=== PATIENT | female | born 1950 | race Native Hawaiian/Other Pacific Islander ===

== ENCOUNTER 2017-02-09 11:06 | Outpatient (CLI) | payer OTHER ==
[~2017-02-09 11:06] MED LIST: AZO PO; B-125000 MC1 SL; BENADRYL25 M1 OR; BIOTIN1000 MCG PO; BISO5TAB2 PO; CETI10TA PO; DICY20TA34 PO; DONNATA1 PO; DULO30CA OR; EVISTA60 MG PO; EZET10TA13 OR; GENTEAL0.3 % OP; HYDR25TA60 PO; LEVAQUIN500 MG OR; LEVO0.0529 PO; LISI20TA11 PO; LOTE0.5S OPTH; MELATONIN3 MG OR; METHO2.5 PO; MULTIVITAMI1 OR; MUPIROCIN2 % EX; PANT40TA PO; PRILOSEC OTC20 MG PO; PROBIOTI1 OR; RESTASIS0.05 % OP; TAMS0.4C PO; TOPAMAX100 MG OR; VESICARE10 MG OR
== END 2017-02-09 12:06 | disposition home or self-care (01) ==
LOC: RAD 11:06
DX: M25.552 Pain in left hip (principal); M51.86 Other intervertebral disc disorders, lumbar region

== ENCOUNTER 2017-04-26 11:14 | Outpatient (CLI) | payer OTHER ==
[2017-04-26 11:43] LABS: PLATELET COUNT 219 K/uL (152-353)
[2017-04-26 12:10] LABS: SODIUM 136 mmol/L (136-145)
== END 2017-04-26 19:17 | disposition home or self-care (01) ==
LOC: LABW 11:14
PROVIDERS: Internal Medicine
DX: I10 Essential (primary) hypertension (principal); M79.672 Pain in left foot
CPT/HCPCS: 36415; 80053; 80061; 81000; 84439; 84443; 85027

== ENCOUNTER 2017-06-06 12:41 | Outpatient (CLI) | payer OTHER | END 2017-06-06 13:45 | disposition home or self-care (01) | LOC: LABW 12:41 | DX: R30.0 Dysuria (principal) | CPT/HCPCS: 81000 ==

== ENCOUNTER 2017-11-07 12:41 | Outpatient (CLI) | payer OTHER | END 2017-11-07 13:45 | disposition home or self-care (01) | LOC: LABW 12:41 | DX: J30.1 Allergic rhinitis due to pollen (principal); L50.8 Other urticaria | CPT/HCPCS: 36415; 85651; 86003; 86039; 86430 ==

== ENCOUNTER 2018-04-01 11:05 | Outpatient (CLI) | payer OTHER ==
[2018-04-01 11:26] LABS: PLATELET COUNT 231 K/uL (152-353)
[2018-04-01 11:53] LABS: POTASSIUM 3.9 mmol/L (3.6-5.2)
== END 2018-04-01 22:27 | disposition home or self-care (01) ==
LOC: LABW 11:05
PROVIDERS: Physician Assistant
DX: E78.4 Other hyperlipidemia (principal); I10 Essential (primary) hypertension; M32.8 Other forms of systemic lupus erythematosus; Z79.899 Other long term (current) drug therapy; E55.9 Vitamin D deficiency, unspecified; Z51.81 Encounter for therapeutic drug level monitoring; D64.9 Anemia, unspecified
CPT/HCPCS: 36415; 80053; 80061; 82306; 83036; 83540; 83735; 84439; 84443; 85027; 86430

== ENCOUNTER 2018-06-28 08:51 | Outpatient (CLI) | payer OTHER | END 2018-06-28 19:16 | disposition home or self-care (01) | LOC: LABW 08:51 | DX: K64.0 First degree hemorrhoids (principal) | CPT/HCPCS: 82272 ==

== ENCOUNTER 2018-10-30 14:14 | Outpatient (CLI) | payer OTHER ==
[2018-10-30 14:34] LABS: PLATELET COUNT 224 K/uL (152-353)
[2018-10-30 15:05] LABS: POTASSIUM 3.7 mmol/L (3.6-5.2)
== END 2018-10-30 21:16 | disposition home or self-care (01) ==
LOC: LABW 14:14
PROVIDERS: Internal Medicine
DX: Z00.00 Encounter for general adult medical examination without abnormal findings (principal); I10 Essential (primary) hypertension; Z79.899 Other long term (current) drug therapy
CPT/HCPCS: 36415; 80053; 80061; 81000; 84439; 84443; 85027

== ENCOUNTER 2018-12-05 12:58 | Outpatient (CLI) | payer OTHER | END 2018-12-05 19:12 | disposition home or self-care (01) | LOC: LAB 12:58 | DX: R35.1 Nocturia (principal) | CPT/HCPCS: 87077; 87086; 87088; 87186 ==

== ENCOUNTER 2018-12-27 14:51 | Outpatient (CLI) | payer OTHER | END 2018-12-27 23:01 | disposition home or self-care (01) | LOC: RAD 14:51 | DX: Z13.820 Encounter for screening for osteoporosis (principal); Z78.0 Asymptomatic menopausal state ==

== ENCOUNTER 2019-02-19 09:37 | Outpatient (CLI) | payer OTHER ==
[2019-02-19 09:55] LABS: PLATELET COUNT 201 K/uL (152-353)
[2019-02-19 10:15] LABS: POTASSIUM 3.7 mmol/L (3.6-5.2)
== END 2019-02-19 20:19 | disposition home or self-care (01) ==
LOC: LABW 09:37
PROVIDERS: Internal Medicine
DX: I10 Essential (primary) hypertension (principal)
CPT/HCPCS: 36415; 80053; 80061; 81000; 84443; 85027

== ENCOUNTER 2019-02-25 09:04 | Outpatient (CLI) | payer OTHER ==
[~2019-02-25] VITALS: Ht 162.6 cm; Wt 95.7 kg
== END 2019-02-25 21:05 | disposition home or self-care (01) ==
LOC: NM 09:04
DX: Z01.818 Encounter for other preprocedural examination (principal); I10 Essential (primary) hypertension; E78.2 Mixed hyperlipidemia
CPT/HCPCS: 93306; A9500; J2785

== ENCOUNTER 2019-03-04 12:03 | Outpatient (CLI) | payer OTHER ==
[2019-03-04 12:22] LABS: PLATELET COUNT 212 K/uL (152-353)
[2019-03-04 12:28] LABS: POTASSIUM 3.8 mmol/L (3.6-5.2)
== END 2019-03-04 23:45 | disposition home or self-care (01) ==
LOC: LABW 12:03
PROVIDERS: Specialist
DX: Z01.810 Encounter for preprocedural cardiovascular examination (principal); R93.1 Abnormal findings on diagnostic imaging of heart and coronary circulation
CPT/HCPCS: 36415; 80053; 85027

== ENCOUNTER 2019-03-11 16:30 | Outpatient (CLI) | payer OTHER | END 2019-03-11 22:51 | disposition home or self-care (01) | LOC: RAD 16:30 | DX: J18.9 Pneumonia, unspecified organism (principal) ==

== ENCOUNTER 2019-06-19 08:32 | Outpatient (CLI) | payer OTHER ==
[2019-06-19 09:18] LABS: POTASSIUM 4.1 mmol/L (3.6-5.2)
[2019-06-19 09:20] LABS: PLATELET COUNT 238 K/uL (152-353)
== END 2019-06-19 23:32 | disposition home or self-care (01) ==
LOC: LABW 08:32
PROVIDERS: Internal Medicine
DX: R53.83 Other fatigue (principal)
CPT/HCPCS: 36415; 80053; 81000; 84439; 84443; 85027

== ENCOUNTER 2019-07-21 14:42 | Outpatient (CLI) | payer OTHER | END 2019-07-21 23:59 | disposition home or self-care (01) | LOC: LAB 14:42 | DX: N39.0 Urinary tract infection, site not specified (principal) | CPT/HCPCS: 87077; 87086; 87088; 87185; 87186 ==

== ENCOUNTER 2019-08-18 16:24 | Outpatient (CLI) | payer OTHER | END 2019-08-18 23:06 | disposition home or self-care (01) | LOC: LABW 16:24 | DX: E78.00 Pure hypercholesterolemia, unspecified (principal); R79.89 Other specified abnormal findings of blood chemistry | CPT/HCPCS: 36415; 84439; 84443 ==

== ENCOUNTER 2019-09-03 08:41 | Emergency (ER) | payer OTHER ==
[~2019-09-03] VITALS: Ht 162.6 cm; Wt 86.2 kg
[~2019-09-03 08:41] MED LIST changes: -BENADRYL25 M1 OR; +DIPH25CA90 PO; -MELATONIN3 MG OR; +MELATONIN3 MG PO; -PANT40TA PO; +PANTOPRAZOLE 40MG TA PO; -PROBIOTI1 OR; +PROBIOTI1 PO
[2019-09-03] MEDS ORDERED: LEVO0.0218 PO (09:12)
[2019-09-03] MEDS ORDERED: IRBESARTAN150 MG PO (09:17)
[2019-09-03] MEDS ORDERED: TROSPIUM CL20 MG PO (09:17)
[2019-09-03] MEDS ORDERED: DOCU100C10 PO (09:18)
[2019-09-03] MEDS ORDERED: TURMERI1 PO (09:19)
[2019-09-03] MEDS ORDERED: CULTURELL3 PO (09:22)
[2019-09-03 10:28] VITALS: BP 155/92; TEMP 97.7
== END 2019-09-03 10:28 | disposition home or self-care (01) ==
LOC: ED 08:41
DX: S81.811A Laceration without foreign body, right lower leg, initial encounter (principal); S80.11XA Contusion of right lower leg, initial encounter; W17.2XXA Fall into hole, initial encounter; Y92.096 Garden or yard of other non-institutional residence as the place of occurrence of the external cause
CPT/HCPCS: 99283

== ENCOUNTER 2019-12-25 11:45 | Outpatient (CLI) | payer OTHER ==
[~2019-12-25 11:45] MED LIST changes: +CULTURELL3 PO; +DOCU100C10 PO; +IRBESARTAN150 MG PO; +LEVO0.0218 PO; +TROSPIUM CL20 MG PO; +TURMERI1 PO
== END 2019-12-25 22:42 | disposition home or self-care (01) ==
LOC: LABW 11:45
DX: Z00.00 Encounter for general adult medical examination without abnormal findings (principal); E03.8 Other specified hypothyroidism
CPT/HCPCS: 36415; 84439; 84443

== ENCOUNTER 2020-02-04 10:20 | Outpatient (CLI) | payer OTHER ==
[2020-02-04 10:38] LABS: PLATELET COUNT 229 K/uL (152-353)
[2020-02-04 10:54] LABS: POTASSIUM 3.9 mmol/L (3.6-5.2)
== END 2020-02-04 22:31 | disposition home or self-care (01) ==
LOC: LABW 10:20
PROVIDERS: Internal Medicine
DX: Z00.00 Encounter for general adult medical examination without abnormal findings (principal); E78.00 Pure hypercholesterolemia, unspecified
CPT/HCPCS: 36415; 80053; 80061; 81000; 85027

== ENCOUNTER 2020-02-06 08:02 | Outpatient (CLI) | payer OTHER | END 2020-02-06 20:11 | disposition home or self-care (01) | LOC: RAD 08:02 | DX: M85.89 Other specified disorders of bone density and structure, multiple sites (principal) ==

== ENCOUNTER 2020-12-28 12:34 | Outpatient (CLI) | payer OTHER ==
[2020-12-28 16:37] LABS: PLATELET COUNT 214 K/uL (152-353)
[2020-12-28 16:56] LABS: POTASSIUM 4.6 mmol/L (3.6-5.2)
== END 2020-12-28 21:00 | disposition home or self-care (01) ==
LOC: LAB 12:34
PROVIDERS: ATTEND Internal Medicine
DX: Z00.00 Encounter for general adult medical examination without abnormal findings (principal); Z13.820 Encounter for screening for osteoporosis; Z79.899 Other long term (current) drug therapy
CPT/HCPCS: 80053; 80061; 81000; 82306; 84439; 84443; 85027

== ENCOUNTER 2022-01-02 13:48 | Outpatient (CLI) | payer OTHER ==
[2022-01-02 14:11] LABS: PLATELET COUNT 231 K/uL (152-353)
[2022-01-02 14:49] LABS: POTASSIUM 4.7 mmol/L (3.6-5.2)
== END 2022-01-02 19:04 | disposition home or self-care (01) ==
LOC: LAB 13:48
PROVIDERS: ATTEND Internal Medicine
DX: Z00.00 Encounter for general adult medical examination without abnormal findings (principal); Z13.820 Encounter for screening for osteoporosis; Z79.899 Other long term (current) drug therapy
CPT/HCPCS: 80053; 80061; 81000; 82306; 84439; 84443; 85027

== ENCOUNTER 2022-06-12 16:13 | Outpatient (CLI) | payer OTHER | END 2022-06-12 18:53 | disposition home or self-care (01) | LOC: CT 16:13 | PROVIDERS: ATTEND Internal Medicine | DX: R10.32 Left lower quadrant pain (principal) | CPT/HCPCS: 36415; 82565; 84520; Q9963 ==

== ENCOUNTER 2023-04-04 13:40 | Outpatient (CLI) | payer OTHER ==
[2023-04-04 14:06] LABS: PLATELET COUNT 221 K/uL (152-353)
[2023-04-04 14:42] LABS: POTASSIUM 4.5 mmol/L (3.6-5.2)
== END 2023-04-04 19:00 | disposition home or self-care (01) ==
LOC: LAB 13:40
PROVIDERS: ATTEND Internal Medicine
DX: Z00.00 Encounter for general adult medical examination without abnormal findings (principal); Z79.899 Other long term (current) drug therapy; Z13.820 Encounter for screening for osteoporosis; E55.9 Vitamin D deficiency, unspecified
CPT/HCPCS: 80053; 80061; 81002; 82306; 84439; 84443; 85027

== ENCOUNTER 2023-05-13 14:01 | Emergency (ER) | payer OTHER ==
[~2023-05-13] VITALS: Ht 162.6 cm; Wt 93.0 kg
[2023-05-13 14:09] VITALS: BP 180/80; TEMP 98.8
== END 2023-05-13 17:29 | disposition home or self-care (01) ==
LOC: ED 14:01
PROC: 2W3KX1Z Immobilization of Left Finger using Splint (ICD-10-PCS; principal; 2023-05-13)
DX: S61.257A Open bite of left little finger without damage to nail, initial encounter (principal); W55.41XA Bitten by pig, initial encounter
CPT/HCPCS: 99283